=== PATIENT | female | born 2000 | race Hispanic/Latino ===

== ENCOUNTER 2022-03-30 23:26 | Emergency (ER) | payer BC, MEDICAID ==
[~2022-03-30] VITALS: Ht 157.5 cm; Wt 98.9 kg
[2022-03-30 23:28] VITALS: BP 131/74
[2022-03-31] MEDS ORDERED: ACETAMINOPHEN 500 MG TABLET PO ONE
[2022-03-31 00:02] LABS: APPEARANCE,URINE Clear (CLEAR); BILIRUBIN,URINE Negative (NEGATIVE); COLOR,URINE Yellow (YELLOW); GLUCOSE, URINE (UA) Negative (NEGATIVE); KETONES,URINE Negative (NEGATIVE); LEUKOCYTE ESTERASE ,URINE Negative (NEGATIVE); NITRATE,URINE Negative (NEGATIVE); OCCULT BLOOD,URINE Trace (NEGATIVE); PROTEIN,URINE Negative (NEGATIVE); UROBILINOGEN,URINE 0.2 mg/dL (0.2-1.0)
[2022-03-31 00:06] LABS: HCG,QUAL RESULT NEGATIVE (NEGATIVE)
[2022-03-31 00:13] LABS: BACTERIA,URINE None Seen /HPF (None Seen); RBC,URINE 0-1 /HPF (0-1); SQUAMOUS EPITHELIAL CELL,UR Rare /HPF (0-2); WBC,URINE None Seen /HPF (0-1)
[2022-03-31] MEDS ORDERED: IBUP-2070 PO (02:58)
[2022-03-31] MEDS ORDERED: ONDA4TAB10 PO (02:59)
== END 2022-03-31 03:21 | disposition home or self-care (01) ==
LOC: EDH 23:26
DX: B34.9 Viral infection, unspecified (principal); E03.9 Hypothyroidism, unspecified; Z20.822 Contact with and (suspected) exposure to COVID-19
CPT/HCPCS: 81001; 81025; 87635; 87804 ×2; 87880; 99283; C9803